=== PATIENT | male | born 1980 | race African-American/Black ===

== ENCOUNTER 2017-11-04 09:18 | Emergency (ER) | payer SELFPAY ==
[~2017-11-04] VITALS: Ht 190.5 cm; Wt 108.9 kg
[~2017-11-04 09:18] MED LIST: BACTRIM DS 8001 TA1 PO; CIPRO500 MG PO; FLAGYL500 MG PO; LOTRISONE 0.05%1 CRE TP; ULTRAM50 MG PO; VIBRAMYCIN100 MG PO; VICODIN ES 7501 TAB PO
[2017-11-04 10:38] LABS: BASO % 0.3 % (0.0-1.0); EOS # 0.3 10*3/uL (0.0-0.4); EOS % 4.3 % (1.0-4.0); HEMATOCRIT 43.4 % (42.0-52.0); HEMOGLOBIN 14.9 g/dl (14.0-18.0); LYMPH # 0.9 10*3/uL (1.3-4.4); LYMPH % 15.4 % (27.0-41.0); MEAN CORPUSCULAR HGB 31.2 pg (27.0-31.0); MEAN CORPUSCULAR HGB CONC 34.3 g/dl (33.0-37.0); MEAN PLATELET VOLUME 10.5 fl (9.6-12.3); MONO # 0.9 10*3/uL (0.1-1.0); MONO % 13.9 % (3.0-9.0); NEUT % 65.8 % (47.0-73.0); PLATELET COUNT AUTOMATED 163 10*3/uL (130-400); RED BLOOD COUNT 4.77 10*6/uL (4.50-5.90); RED CELL DISTRI WIDTH 13.1 % (0-14.5); WHITE BLOOD COUNT 6.1 10*3/uL (4.8-10.8)
[2017-11-04 10:53] LABS: ALBUMIN 3.6 gm/dl (3.1-4.5); ALKALINE PHOSPHATASE 81 U/L (45-117); BUN 13 mg/dl (7-24); CHLORIDE 109 mmol/L (98-107); CREATININE 1.19 mg/dL (0.70-1.30); LIPASE 99 U/L (73-393); POTASSIUM 3.4 mmol/L (3.5-5.1); SGOT/AST 35 IU/L (3-35); SGPT/ALT 72 U/L (12-78); SODIUM 143 mmol/L (136-145); TOTAL PROTEIN 6.9 gm/dL (6.4-8.2)
== END 2017-11-04 11:19 | disposition home or self-care (01) ==
LOC: ED 09:18
PROVIDERS: Physician Assistant
DX: K52.9 Noninfective gastroenteritis and colitis, unspecified (principal)

== ENCOUNTER 2019-04-14 20:50 | Emergency (ER) | payer BC ==
[~2019-04-14] VITALS: Ht 190.5 cm; Wt 108.9 kg
[2019-04-14] MEDS ORDERED: BENADRYL25 M2 PO (21:06)
[2019-04-14] MEDS ORDERED: MEDROL DOSEPAK4 MG PO (21:06)
[2019-04-14] MEDS ORDERED: KENALOG 0.1%80 GM T (21:06)
== END 2019-04-14 21:14 | disposition home or self-care (01) ==
LOC: ED 20:50
DX: R21 Rash and other nonspecific skin eruption (principal)

== ENCOUNTER 2019-05-18 08:52 | Emergency (ER) | payer BC ==
[~2019-05-18] VITALS: Ht 190.5 cm; Wt 113.4 kg
[~2019-05-18 08:52] MED LIST changes: +BENADRYL25 M2 PO; +KENALOG 0.1%80 GM T; +MEDROL DOSEPAK4 MG PO
[2019-05-18] MEDS ORDERED: Motrin,Rufen800 MG PO (10:40)
[2019-05-18] MEDS ORDERED: TAMIFLU 75MG CA75 MG PO (10:40)
== END 2019-05-18 11:05 | disposition home or self-care (01) ==
LOC: ED 08:52
DX: J10.1 Influenza due to other identified influenza virus with other respiratory manifestations (principal); Z79.899 Other long term (current) drug therapy

== ENCOUNTER 2021-02-28 12:39 | Emergency (ER) | payer BC ==
[~2021-02-28] VITALS: Ht 190.5 cm; Wt 113.4 kg
[~2021-02-28 12:39] MED LIST changes: +Motrin,Rufen800 MG PO; +TAMIFLU 75MG CA75 MG PO
== END 2021-02-28 17:15 | disposition home or self-care (01) ==
LOC: ED 12:39
DX: U07.1 COVID-19 (principal); F17.200 Nicotine dependence, unspecified, uncomplicated

== ENCOUNTER 2022-08-09 16:02 | Emergency (ER) | payer BC | END 2022-08-09 17:21 | disposition home or self-care (01) | LOC: ED 16:02 | DX: S61.011A Laceration without foreign body of right thumb without damage to nail, initial encounter (principal); Z98.890 Other specified postprocedural states; W26.8XXA Contact with other sharp object(s), not elsewhere classified, initial encounter; Y93.89 Activity, other specified; Y92.89 Other specified places as the place of occurrence of the external cause; Y99.8 Other external cause status ==